=== PATIENT | female | born 1990 | race African-American/Black ===

== ENCOUNTER 2016-08-26 10:20 | Inpatient (IN) | payer OTHER ==
[2016-08-26] MEDS ORDERED: ATIVAN ONE (10:28)
[2016-08-26] MEDS ORDERED: NS 1,000 ML ONE (10:30)
[2016-08-26] MEDS ORDERED: ATIVAN IM ONE (10:32)
[2016-08-26 10:44] LABS: BE 1.7 mmoll (-3.0-3.0); BLOOD TYPE ARTERIAL; DRAW SITE R BRACHIAL; METHB 1.5 % (0.0-1.5); O2(CT) 18.3 mL/dL (15.0-23.0); PO2(98.6) 162 mmHg (60-100); SAMPLE BLOOD; THB 13.5 g/dL (11.5-17.4)
[2016-08-26 10:47] LABS: ALLEN TEST YES; PCO2(98.6) 17 mmHg (35-45); pH(98.6) 7.67 (7.35-7.45)
[2016-08-26] MEDS ORDERED: KEPPRA 1,000 MG in NS 100 ML IV ONE (10:47)
[2016-08-26] MEDS ORDERED: ATIVAN IV ONE (10:47)
[2016-08-26 10:48] LABS: MODALITY CANNULA
[2016-08-26] MEDS ORDERED: NS 1,000 ML IV ONE (10:49)
[2016-08-26] MEDS ORDERED: KEPPRA ONE (10:51)
[2016-08-26] MEDS ORDERED: NS ONE (10:51)
[2016-08-26 10:53] LABS: MANUAL DIFF NEEDED? NO; URINE SOURCE CATH
[2016-08-26 10:55] LABS: BASO% 0.8 % (0.0-0.8); EOS# 0.03 X1000 (0.0-0.7); EOS% 0.6 % (0.0-10.0); HEMATOCRIT 40.5 % (37.0-47.0); IMM GRAN# 0.01 X1000 (0.0-0.04); IMM GRAN% 0.2 % (0.0-0.5); LYMPH# 1.54 X1000 (1.2-3.4); LYMPH% 31.1 % (20.5-51.1); MCH 29.8 PG (27-31); MCHC 34.6 g/dL (33-37); MCV 86.2 FL (81-99); MONO# 0.68 X1000 (0.11-0.59); MONO% 13.7 % (1.7-9.3); MPV 9.7 FL (7.4-10.4); NEUT% 53.6 % (42.2-75.2); PLT 271 X1000 (130-400)
[2016-08-26] MEDS ORDERED: AMIDATE ONE (10:57)
[2016-08-26] MEDS ORDERED: QUELICIN ONE (10:58)
[2016-08-26 11:00] LABS: BILIRUBIN URINE NEGATIVE (NEGATIVE); BLOOD URINE 1+ (NEGATIVE); CLARITY CLEAR (CLEAR); COLOR YELLOW; GLUCOSE URINE NEGATIVE (NEGATIVE); LEUKOCYTES URINE TRACE (NEGATIVE); NITRITE URINE NEGATIVE (NEGATIVE); PH URINE 6.5; PROTEIN URINE TRACE mg/dL (NEGATIVE); SP GRAVITY URINE 1.015; UROBILINOGEN URINE 4+(12 mg/dL)
--- NOTE | 2016-08-26 11:00 | PROVIDER DOCUMENTATION ---
HPI-Neurological Disorder <Aishwarya Ford - Last Filed: 08/26/16 11:02> - General Source: RN notes reviewed Unable to obtain history due to:: altered - History of Present Illness-Neuro Onset/Duration: reports: abrupt, just prior to arrival Timing: reports: improving Context: reports: seizure activity Associated Symptoms: reports: seizures Similar Symptoms Previously?: Yes Recently seen or treated by another doctor?: No - Seizure First time to have a seizure?: No Witnessed seizure?: Yes How many seizure episodes?: 3 Episode details: reports: unknown duration Episode Frequency: occasional episodes Status Epilepticus: Yes Preceding symptoms/context:: missed recent doses of seizure meds Character of Seizure: reports: lost consciousness, generalized shaking all over Post-ictal Symptoms: reports: confusion, lost power/feeling, speech difficulty Seizure related injury: none <Kade Negron - Last Filed: 08/26/16 12:30> - General Chief Complaint: Seizure Stated Complaint: SEIZURE{S} Time Seen by Provider: 08/26/16 10:38 Allergies/Adverse Reactions: Patient Allergies Allergy/AdvReac Type Severity Reaction Status Date / Time acetaminophen Allergy ITCHING Verified 08/09/16 10:28 Benzodiazepines Allergy ITCHING Verified 08/09/16 10:28 guaifenesin [From Robitussin] Allergy ITCHING Verified 08/09/16 10:28 hydromorphone HCl * Allergy RASH Verified 08/09/16 10:28 [From Dilaudid] ibuprofen Allergy RASH Verified 08/09/16 10:28 risperidone [From Risperdal] AdvReac Unknown Verified 08/09/16 10:28 - History of Present Illness-Neuro Nature of Presenting Problem: patient is a 25 y/o F that presents to the ER after having two seizure just [employer]. Patient has history of seizure per family, she was on Triliptal but couldn' t afford it any more and hasn't had it in awhile. (Kade Negron) Review of Systems - Adult - REVIEW OF SYSTEMS - ADULT ROS:: ROS per family Constitutional: denies: chills, fever Eyes: reports: no symptoms reported Ears, Nose, Mouth & Throat: reports: no symptoms reported Cardiovascular: denies: chest pain, palpitations Respiratory: denies: cough, shortness of breath, wheezing Gastrointestinal: reports: nausea, vomiting. denies: abdominal pain, diarrhea Genitourinary: denies: dysuria, frequency, hematuria Musculoskeletal: reports: no symptoms reported Integumentary: reports: no symptoms reported Neurological: reports: seizure. denies: dizziness/vertigo, syncope Psychiatric: reports: no symptoms reported Endocrine: reports: no symptoms reported Hematologic/Lymphatic: reports: no symptoms reported Allergic/Immunologic: reports: no symptoms reported All Other Systems: Reviewed and Negative <Kade Negron - Last Filed: 08/26/16 12:30> Past History - Adult - PAST MEDICAL HISTORY-ADULT Review of Records: reports: Old Records Reviewed, Nursing Assessment Review, Medications Reviewed Respiratory: reports: asthma Obstetrical/Gynecological: reports: ovarian cysts Neurological: reports: Seizures/Epilepsy - PRIOR SURGERIES/PROCEDURES Surgical/Procedure History: reports: none - IMMUNIZATION STATUS Childhood Immunizations: See Nurse Assessment Flu Vaccine: See Nurse Assessment - FAMILY HISTORY Family History: reviewed, not pertinent - SOCIAL HISTORY Smoking: cigarettes, less than 1 pack/day Living Situation: family <Kade Negron - Last Filed: 08/26/16 12:30> Physical Exam- Neurological - Physical Exam-Neuro Exam Limited by: condition Initial Vital Signs Reviewed: Yes General Appearance: moderate distress, other (unresponsive) Eye Exam: bilateral eye: other (pinpoint bilaterally) HENMT: normocephalic/atraumatic, moist mucous membranes, normal ENT inspection Head Injury: no evidence of injury. negative: ecchymosis, lacerations Neck: full range of motion, normal inspection Respiratory: respiratory distress (mild), increased rate. negative: accessory muscle use Cardiovascular: no gallop, no murmur, tachycardia Abdominal Exam: normal bowel sounds, non tender, soft Extremity: normal range of motion, normal inspection, no pedal edema Integumentary: normal color, warm/dry Psych/Mental Status: other (unresponsive) <Kade Negron - Last Filed: 08/26/16 12:30> Progress - EKG 1 Time of EKG reading by physician:: 10:54 EKG Read and Signed by:: Jose M Staley EKG Interpretation (*Must complete 3 of following elements*): Normal Rate: 87 Rhythm: normal sinus rhythm Martin: normal QRS: normal NM Interval: normal ST Wave: normal <Aishwarya Ford - Last Filed: 08/26/16 11:02> - CT/MRI 1 CT Study: Head Impression: Normal CT Results: nap - CONSULTS/PCP/HOSPITALIST Notification #1 *Consult/PCP/Hospitalist*: Time Discussed: :17 Reason/Comments: to ICU at [facility] Consult Disposition: Admit <Kade Negron. - Last Filed: 08/26/16 12:30> - PLAN OF CARE/RESULTS Progress/Plan/Lab Results: on arrival to room, patient began to have active seizure with vomiting. was called to room,in which patient was post-ictal with vomiting on floor. Patient was moved to trauma room 1 in which she became more alert and awake. Vital Signs Pulse Resp BP Pulse Ox 08/26/16 12:13 83 18 103/58 100 08/26/16 12:00 82 18 133/94 100 08/26/16 11:30 85 21 119/89 100 08/26/16 10:50 102 H 22 118/83 100 08/26/16 10:42 92 H 30 H 161/137 100 acetaminophen Allergy (Verified 08/09/16 10:28) ITCHING Benzodiazepines Allergy (Verified 08/09/16 10:28) ITCHING guaifenesin [From Robitussin] Allergy (Verified 08/09/16 10:28) ITCHING hydromorphone HCl * [From Dilaudid] Allergy (Verified 08/09/16 10:28) RASH ibuprofen Allergy (Verified 08/09/16 10:28) RASH risperidone [From Risperdal] Adverse Reaction (Verified 08/09/16 10:28) Unknown Cephalexin [Keflex] 500 mg PO Q6HR #30 capsule 08/09/16 Laboratory 08/26/16 08/26/16 08/26/16 10:45 10:45 10:45 WBC 4.95 RBC 4.70 Hgb 14.0 Hct 40.5 MCV 86.2 MCH 29.8 MCHC 34.6 RDW Std Deviation 12.3 Plt Count 271 MPV 9.7 Immature Gran % (Auto) 0.2 Neut % (Auto) 53.6 Lymph % (Auto) 31.1 [place] % (Auto) 13.7 H Eos % (Auto) 0.6 Baso % (Auto) 0.8 Immature Gran # (Auto) 0.01 Neut # (Auto) 2.65 Lymph # (Auto) 1.54 [place] # (Auto) 0.68 H Eos # (Auto) 0.03 Baso # (Auto) 0.04 Specimen Type Sample Site pH pCO2 pO2 HCO3 Base Excess Oxyhemoglobin ABG O2 Sat (Calculated) ABG O2 Saturation ABG Carboxyhemoglobin ABG Methemoglobin Michael Test A-a O2 Difference Total Hemoglobin Lactate Liter Flow Blood Gas Modality FiO2 % Sodium Potassium Chloride Carbon Dioxide Anion Gap BUN Creatinine Estimated GFR/1.73 m2 BUN/Creatinine Ratio Glucose Calculated Osmolality Calcium Total Bilirubin AST ALT Alkaline Phosphatase Total Protein Albumin Globulin Albumin/Globulin Ratio Urine Source CATH Urine Color YELLOW Urine Clarity CLEAR Urine pH 6.5 Ur Specific [place] 1.015 Urine Protein TRACE A Urine Ketones NEGATIVE Urine Blood 1+ A Urine Nitrite NEGATIVE Urine Bilirubin NEGATIVE Urine Urobilinogen 4+(12 mg/dL) Urine Microscopic RBC 10-20 A Urine WBC TRACE A Urine Microscopic WBC <10 Ur Epithelial Cells <10 Urine Bacteria 1+ Urine Glucose NEGATIVE Urine Opiates Screen NONE DETECTED Ur Oxycodone Screen NONE DETECTED Urine Methadone Screen NONE DETECTED Ur Barbituates Screen NONE DETECTED Ur Tricyclics Screen NONE DETECTED Ur Phencyclidine Scrn NONE DETECTED Ur Amphetamines Screen NONE DETECTED U Methamphetamines Scrn NONE DETECTED Urine MDMA Screen NONE DETECTED U Benzodiazepines Scrn NONE DETECTED Urine Cocaine Screen NONE DETECTED U Cannabinoids Screen PRESUMPTIVE POSITIVE A 08/26/16 08/26/16 10:45 10:36 WBC RBC Hgb Hct MCV MCH MCHC RDW Std Deviation Plt Count MPV Immature Gran % (Auto) Neut % (Auto) Lymph % (Auto) [place] % (Auto) Eos % (Auto) Baso % (Auto) Immature Gran # (Auto) Neut # (Auto) Lymph # (Auto) [place] # (Auto) Eos # (Auto) Baso # (Auto) Specimen Type ARTERIAL Sample Site R BRACHIAL pH 7.67 H* pCO2 17 L* pO2 162 H HCO3 26.2 H Base Excess 1.7 Oxyhemoglobin 94.7 L ABG O2 Sat (Calculated) 18.3 ABG O2 Saturation 99.0 ABG Carboxyhemoglobin 2.80 H ABG Methemoglobin 1.5 Michael Test YES A-a O2 Difference 130.0 Total Hemoglobin 13.5 Lactate 3.20 H Liter Flow 5.0 Blood Gas Modality CANNULA FiO2 % 44.0 Sodium 138 Potassium 3.4 L Chloride 101 Carbon Dioxide 26 Anion Gap 11 BUN 7 L Creatinine 0.9 Estimated GFR/1.73 m2 > 60 BUN/Creatinine Ratio 8 Glucose 57 L Calculated Osmolality 271 Calcium 9.8 Total Bilirubin 0.50 AST 20 ALT 21 Alkaline Phosphatase 82 Total Protein 7.8 Albumin 4.5 Globulin 3.0 Albumin/Globulin Ratio 1.0 Urine Source Urine Color Urine Clarity Urine pH Ur Specific [place] Urine Protein Urine Ketones Urine Blood Urine Nitrite Urine Bilirubin Urine Urobilinogen Urine Microscopic RBC Urine WBC Urine Microscopic WBC Ur Epithelial Cells Urine Bacteria Urine Glucose Urine Opiates Screen Ur Oxycodone Screen Urine Methadone Screen Ur Barbituates Screen Ur Tricyclics Screen Ur Phencyclidine Scrn Ur Amphetamines Screen U Methamphetamines Scrn Urine MDMA Screen U Benzodiazepines Scrn Urine Cocaine Screen U Cannabinoids Screen Orders Category Date Time Status CHEST-PORTABLE [RAD] Stat Exams 08/26/16 10:39 Taken HEAD W/O CONTRAST [CT] Stat Exams 08/26/16 10:39 Draft ABG [RESP] Routine Lab 08/26/16 10:36 Completed BLOOD CULTURE [BLDCUL] Stat Lab 08/26/16 11:40 Ordered CBC WITH DIFF [HEME] Stat Lab 08/26/16 10:45 Completed COMPREHENSIVE METABOLIC PANEL [CHEM] Stat Lab 08/26/16 10:[address] W/POSS RFLX CULT [URINALYSIS] Stat Lab 08/26/16 10:45 Completed URINE CULTURE [RM] Routine Lab 08/26/16 11:12 Ordered [address] DRUG SCREEN [address] Stat Lab 08/26/16 10:45 Completed 0.9% Sodium Chloride Inj [Ns] 1,000 ml Med 08/26/16 10:30 Discontinued .ROUTE As Directed 0.9% Sodium Chloride Inj [Ns] 1,000 ml Med 08/26/16 10:49 Discontinued IV 999 mls/hr Clindamycin Med 08/26/16 11:39 Discontinued 900 mg IV NOW ONE Clindamycin 900 mg/Ns 50 ml Med 08/26/16 12:07 Discontinued .ROUTE As Directed Etomidate [Amidate] Med 08/26/16 10:57 Discontinued 20 mg .ROUTE .STK-MED ONE Levetiracetam 1000 mg/Ns [Keppra 1,000 mg/Ns] 100 ml Med 08/26/16 10:51 Discontinued .ROUTE As Directed Levetiracetam [Keppra] 1,000 mg Med 08/26/16 10:47 Discontinued 0.9% Sodium Chloride Inj [Ns] 100 ml IV NOW Lorazepam [Ativan] Med 08/26/16 10:28 Discontinued 2 mg .ROUTE .STK-MED ONE Lorazepam [Ativan] Med 08/26/16 10:32 Discontinued 2 mg IM NOW ONE Lorazepam [Ativan] Med 08/26/16 10:47 Discontinued 2 mg IV NOW ONE Succinylcholine [Quelicin] Med 08/26/16 10:58 Discontinued 200 mg .ROUTE .STK-MED ONE Transfer/Admit Order [TRANSFER] Routine Transfer 08/26/16 12:22 Ordered (Kade Negron) Departure <Aishwarya Ford - Last Filed: 08/26/16 11:02> - Departure Time of Disposition Order: 12:29 Certified Medical Emergency: Emergent - Critical Care Note Total Time (mins): 40 Critical Care Statement: This patient required my direct personal management to treat or rule out processes, the absence of which, could potentiallly result in sudden, clinically significant life or limb threatening deterioration. <Kade Negron - Last Filed: 08/26/16 12:30> - Departure DIAGNOSIS: Seizure Disposition: ADMITTED INPATIENT 09 Condition: Stable Attestation - Scribe Verification/Attestation Scribe:: Aishwarya Ford Acting as Scribe for:: Jose M Staley Scribe documention review:: This chart was documented by a scribe and accurately reflects the service the provider performed and the decisions made by the provider. <Aishwarya Ford - Last Filed: 08/26/16 11:02> - Scribe Verification/Attestation Scribe:: Kade Negron Acting as Scribe for:: Jose M Staley Scribe documention review:: This chart was documented by a scribe and accurately reflects the service the provider performed and the decisions made by the provider. <Kade Negron - Last Filed: 08/26/16 12:30> Physician Attestation - Physician Attestation I, the provider, attest to the following statement:: Jose M Staley Physician documentation Attestation:: This documentation recorded by the scribe accurately reflects the service I personally performed and the decisions made by me. <Kade Negron - Last Filed: 08/26/16 12:30>
[2016-08-26 11:01] LABS: UR AMPHETAMINES QUAL NONE DETECTED (NONE DETECT); UR BARBITUATES QUAL NONE DETECTED (NONE DETECT); UR BENZODIAZEPIN QUAL NONE DETECTED (NONE DETECT); UR CANNABINOIDS QUAL PRESUMPTIVE POSITIVE (NONE DETECT); UR COCAINE QUAL NONE DETECTED (NONE DETECT); UR MDMA QUAL NONE DETECTED (NONE DETECT); UR METHADONE QUAL NONE DETECTED (NONE DETECT); UR METHAMPHETAMINE QUAL NONE DETECTED (NONE DETECT); UR OPIATES QUAL NONE DETECTED (NONE DETECT); UR OXYCODONE QUAL NONE DETECTED (NONE DETECT); UR PCP QUAL NONE DETECTED (NONE DETECT); UR TCA QUAL NONE DETECTED (NONE DETECT)
[2016-08-26 11:12] LABS: URINE CULTURE PL NEEDED? YES; URINE EPITHELIAL CELLS <10 /HPF (<10); URINE WBC <10 /HPF (<10)
[2016-08-26 11:15] LABS: AGAP 11; ALBUMIN 4.5 g/dL (3.5-5.0); ALKALINE PHOSPHATASE 82 U/L (32-104); BUN 7 mg/dL (8-22); CALCIUM 9.8 mg/dL (8.8-10.2); CHLORIDE 101 mmol/L (98-107); COSMO 271; GOT 20 U/L (10-30); GPT 21 U/L (10-36); POTASSIUM 3.4 mmol/L (3.5-5.1); SODIUM 138 mmol/L (136-145); TCO2 26 mmol/L (25-35); TOTAL PROTEIN 7.8 g/dL (6.3-8.3)
[2016-08-26] MEDS ORDERED: CLINDAMYCIN IV ONE (11:39)
[2016-08-26] MEDS ORDERED: CLINDAMYCIN 900 MG/NS 50 ML ONE (12:07)
--- NOTE | 2016-08-26 12:22 | Diag Imaging Result Document ---
PROCEDURE NAME: HEAD W/O CONTRAST - 08/26/2016 CT HEAD WITHOUT CONTRAST: COMPARISON: None available. FINDINGS: There is no discrete intracranial mass, mass effect, or intracranial hemorrhage. There is no evidence of hydrocephalus. There is no evidence of acute infarct given the limited sensitivity of CT versus MRI. The surrounding soft tissues and bony structures are essentially unremarkable. IMPRESSION: No evidence of acute intracranial pathology.
--- NOTE | 2016-08-26 12:39 | EKG Report ---
Test Performed on : 08/26/2016 10:54:07 AM Test Reason : cp Blood Pressure : / mmHG Vent. Rate : 087 BPM Atrial Rate : 087 BPM P-R Int : 150 ms QRS Dur : 092 ms QT Int : 382 ms P-R-T Axes : 047 041 023 degrees QTc Int : 459 ms Normal sinus rhythm. Normal ECG No previous ECGs available Unconfirmed Result
--- NOTE | 2016-08-26 13:59 | Diag Imaging Result Document ---
PROCEDURE NAME: CHEST-PORTABLE - 08/26/2016 SINGLE FRONTAL RADIOGRAPH OF THE CHEST: COMPARISON: None available. FINDINGS: The lungs are grossly clear. There is no discrete pleural fluid collection or evidence of pneumothorax. The cardiomediastinal silhouette and upper airway are grossly unremarkable. IMPRESSION: No evidence of acute chest pathology.
[2016-08-26] MEDS ORDERED: ZOFRAN IV PRN (14:27)
[2016-08-26] MEDS ORDERED: ROCEPHIN 1 GM/NS 50 ML IV SCH (16:30)
[2016-08-26] MEDS: VIMPAT PO SCH (21:17)
--- NOTE | 2016-08-27 02:40 | HISTORY AND PHYSICAL ---
PRIMARY CARE PHYSICIAN: None. CHIEF COMPLAINT: Had 2 witnessed seizures prior to arriving at [facility] today. HISTORY OF PRESENTING ILLNESS: This is a 25-year-old female who presents to [facility] ER after she had 2 witnessed seizures at [facility] today while she was eating lunch prior to arriving to the emergency room. When she arrived to the emergency room she had another seizure with vomiting. Workup in the ER showed urine drug screen was presumptive positive for cannabinoids. Blood gas showed a pH of 7.67, pCO2 of 17, PO2 162. She was given Ativan 2 mg IM x1 and 2 mg IV x1. She was also given a loading dose of Keppra 1000 mg IV x1, given a liter of normal saline x1, was given clindamycin 900 mg IV x1 in the ER. The patient was admitted then to intensive care unit. The patient states that she was started on Trileptal when she was incarcerated several months ago. States the only thing that works for her is Trileptal and Klonopin together but states that she is unable to afford the Trileptal and that it has been approximately 4 months since she has taken any Trileptal. States that the Keppra gives her blurred vision and that Dilantin just did not work. She currently is alert and awake and answers all my questions appropriately and she is being admitted for further evaluation and treatment. PAST MEDICAL HISTORY: Of asthma and seizures. PAST SURGICAL HISTORY: None. FAMILY HISTORY: Noncontributory. SOCIAL HISTORY: She currently lives with family. Smokes 3-4 cigarettes a day. Denies any alcohol use and denies any illicit drug use even though her urine drug screen is positive for cannabinoids. ALLERGIES: TO ACETAMINOPHEN, BENZODIAZEPINES, ROBITUSSIN, DILAUDID, IBUPROFEN AND RISPERDAL. HOME MEDICATIONS: She listed Keflex 500 mg but states she is not taking that currently so that will be held. LABORATORY DATA: Showed a white blood cell count of 4.95, hemoglobin 14, hematocrit 40.5, platelets 271,000. ABG with a pH of 7.67, pCO2 17, PO2 162 and this is on 5 L via nasal cannula. Sodium of 138, potassium 3.4, chloride 101, CO2 was 26, BUN of 7, creatinine 0.9, glucose 57. Urinalysis was negative for nitrites, trace of white blood cells and 1+ bacteria. Urine drug screen presumptive positive for cannabinoids. Blood culture and urine cultures are pending. CT of the head showed no evidence of acute intracranial pathology. Chest x-ray showed no evidence of an acute chest pathology. REVIEW OF SYSTEMS: She denied any fever, chills, blurred vision, dizziness, chest pain, coughing, shortness of breath. She denied any constipation, diarrhea, or burning or hurting with urination. PHYSICAL EXAMINATION: VITAL SIGNS: On arrival, pulse was 92, respirations 30, blood pressure 161/137, saturating 100% on 5 L via nasal cannula. Currently blood pressure is down to 103/58. GENERAL: This is a 25-year-old female who states she does not want to be here but is willing to accept treatment. HEENT: Normocephalic and atraumatic. Pupils are equal, round, reactive to light. Extraocular movements are intact. Oropharynx and nares are clear. NECK: Supple. LUNGS: Clear to auscultation bilaterally with equal lung expansion and chest wall movement. HEART: With regular rate and rhythm. No murmurs, rubs, or gallops. ABDOMEN: Soft, nontender, nondistended. Bowel sounds are present x4 quadrants. EXTREMITIES: No clubbing, cyanosis, or edema. NEUROLOGICAL: The cranial nerves 2-12 are grossly intact. ASSESSMENT: 1. Seizures. 2. Questionable urinary tract infection. 3. Tobacco abuse. 4. Marijuana use and medical noncompliance. PLAN: She was admitted to the intensive care unit mostly because it was reported she was having periods of apnea in the ER right after she had a witnessed seizure. She has not had any more of that at this time but we will continue to monitor her closely. Neuro checks q.1 hour, vital signs q.4, regular diet. O2 per protocol. We will start her on Vimpat 100 mg p.o. b.i.d. as patient states that the Keppra causes her to have blurred vision and we will consult Neurology who can see her in the a.m. if available and will recheck CBC, CMP, and an ABG in the a.m. Dictated by ARCELIA Maxwell for Mark Anthony Alonzo MD
[2016-08-27] MEDS: VIMPAT PO SCH (09:36)
[2016-08-27 10:58] VITALS: BP 110/70
--- NOTE | 2016-08-27 20:15 | DISCHARGE SUMMARY ---
ADMISSION DATE: 08/26/2016 DISCHARGE DATE: 08/27/2016 DISCHARGE DIAGNOSES: 1. Seizure disorder. 2. Noncompliance. HOSPITAL COURSE: Briefly this is a 25-year-old female, very noncompliant with her seizure medicines for various reasons mostly associated with cost. She had 2 witnessed seizures. I think she works at [employer] or she was eating at [employer] but she had 2 witnessed seizures. She came in. She was given Keppra but she is not very interested in maintaining on that because it prevents her from eating and decreases her appetite. She says she has been stable on Trileptal and Klonopin in the past, and Dilantin did not control her seizures. In any case she was given 1 g of Keppra, 4 mg of Ativan and her seizures have been well-controlled. There was some concern over possible aspiration but I do not think her chest x-rays showed any infiltrates. She had a couple episodes of apnea associated when she was postictal but that also has improved. In any case patient improved. She was adamant to go home, almost left AMA. Fortunately she stuck around long enough so we could at least organize some medications for her which will likely be topiramate based on cost 100 b.i.d. and we will follow as she has been intolerant of Dilantin and Keppra in the past. Discharge condition is stable. Questionable urinary tract infection but her urine culture is negative. Her laboratory data is unremarkable so I think she is okay to go home today on seizure medicines. We will try to arrange followup with Neurology, unable ti at this time. Return for worsening seizures or any worsening shortness of breath, cough or fever. TOTAL TIME SPENT ON DISCHARGE: 32 minutes.
[2016-08-27] MEDS ORDERED: TOPAMAX PO SCH (21:00)
[2016-08-27] MEDS ORDERED: ZONEGRAN PO SCH (21:00)
== END 2016-08-27 10:15 | disposition home or self-care (01) | DRG 101 ==
LOC: P.ED 10:20 → P.ICU 12:28 → ICU 12:28 → UNDOADMIN 12:28 → P.ICU 14:09
PROVIDERS: ADMIT Internal Medicine; ATTEND Internal Medicine
DX: G40.909 Epilepsy, unspecified, not intractable, without status epilepticus (principal); F17.210 Nicotine dependence, cigarettes, uncomplicated; T42.1X6A Underdosing of iminostilbenes, initial encounter; Z91.120 Patient's intentional underdosing of medication regimen due to financial hardship; J45.909 Unspecified asthma, uncomplicated; F12.10 Cannabis abuse, uncomplicated
CPT/HCPCS: 70450; 71010; 80053; 81001; 82805; 82948; 85025; 87040; 87088; 93005; 94660; 96361; 96365; 96366; 96367; 96372; 96375; J0330; J0696; J1953; J2060; J7030; S0077

== ENCOUNTER 2019-06-26 05:18 | Observation (INO) ==
--- NOTE | 2019-06-23 13:55 | EKG Report ---
Test Performed on : 06/23/2019 1:51:01 PM Test Reason : PAT Blood Pressure : / mmHG Vent. Rate : 083 BPM Atrial Rate : 083 BPM P-R Int : 158 ms QRS Dur : 088 ms QT Int : 382 ms P-R-T Axes : 041 037 004 degrees QTc Int : 448 ms Normal sinus rhythm. Normal ECG When compared with ECG of 09-OCT-2018 14:13, No significant change was found Unconfirmed Result
[2019-06-23 14:13] LABS: URINE SOURCE VOIDED
[2019-06-23 14:16] LABS: BASO# 0.04 X1000 (0.0-0.2); BASO% 0.7 % (0.0-0.8); EOS# 0.15 X1000 (0.0-0.7); EOS% 2.8 % (0.0-10.0); HEMATOCRIT 39.2 % (37.0-47.0); HEMOGLOBIN 12.8 g/dL (12.0-16.0); LYMPH# 2.33 X1000 (1.2-3.4); LYMPH% 42.8 % (20.5-51.1); MCH 28.7 PG (27-31); MCHC 32.7 g/dL (33-37); MCV 87.9 FL (81-99); MONO# 0.47 X1000 (0.11-0.59); MONO% 8.6 % (1.7-9.3); MPV 9.6 FL (7.4-10.4); NEUT# 2.45 X1000 (1.4-6.5); NEUT% 45.1 % (42.2-75.2); PLT 368 X1000 (130-400); RBC 4.46 XMIL (4.2-5.4); RDW 13.2 % (11.5-14.5); WBC 5.44 X1000 (4.8-10.8)
--- NOTE | 2019-06-23 14:18 | Diag Imaging Result Doc PS360 ---
EXAM: CHEST-2 VIEWS HISTORY: PAT TECHNIQUE: Two views COMPARISON: 08/03/2017 FINDINGS: The lungs are well expanded. The heart is not enlarged. The vessels are not distended. There are no infiltrates. No pleural effusions. IMPRESSION: No acute abnormality. Electronically signed by Arsen Mata 06/23/2019 2:15 PM
[2019-06-23 14:19] LABS: BILIRUBIN URINE NEGATIVE (NEGATIVE); BLOOD URINE NEGATIVE (NEGATIVE); COLOR YELLOW; GLUCOSE URINE NEGATIVE (NEGATIVE); KETONE URINE TRACE mg/dL (NEGATIVE); LEUKOCYTES URINE NEGATIVE (NEGATIVE); NITRITE URINE NEGATIVE (NEGATIVE); PROTEIN URINE 30 mg/dL (NEGATIVE); SP GRAVITY URINE 1.036; TURBIDITY URINE CLEAR (CLEAR); UR EPITHELIAL CELLS <10 /HPF (<10); URINE BACTERIA 1+ /HPF; URINE RBC <10 /HPF (<10); URINE WBC <10 /HPF (<10); UROBILINOGEN URINE 2 mg/dL (NORMAL)
[2019-06-23 14:39] LABS: AGAP 10; ALB/GLOB RATIO 1.4; ALBUMIN 4.5 g/dL (3.5-5.0); ALKALINE PHOSPHATASE 84 U/L (32-104); BUN 9 mg/dL (8-22); CALCIUM 9.2 mg/dL (8.8-10.2); CHLORIDE 105 mmol/L (98-107); COSMO 287; CREATININE 1.2 mg/dL (0.5-0.9); ESTIMATED GFR > 60; GLUCOSE 117 mg/dL (70-104); GOT 20 U/L (10-30); GPT 21 U/L (10-36); POTASSIUM 3.9 mmol/L (3.5-5.1); SODIUM 144 mmol/L (136-145); TCO2 29 mmol/L (25-35); TOTAL PROTEIN 7.7 g/dL (6.3-8.3)
[2019-06-26] MEDS ORDERED: KEFZOL 1 GM/D5W 1 GM/50 ML IVPB ONE (05:53)
[2019-06-26] MEDS ORDERED: PEPCID ONE (05:53)
[2019-06-26] MEDS ORDERED: LR 1,000 ML ONE (05:53)
[2019-06-26] MEDS ORDERED: REGLAN ONE (05:53)
[2019-06-26] MEDS ORDERED: SENSORCAINE 0.5%-EPI 1:200,000 ONE (06:13)
[2019-06-26] MEDS ORDERED: NUPERCAINAL ONE (06:13)
[2019-06-26] MEDS ORDERED: DIPRIVAN 1% ONE (06:45)
[2019-06-26] MEDS ORDERED: XYLOCAINE-MPF 2% ONE (06:46)
[2019-06-26] MEDS ORDERED: SUFENTA ONE (06:52)
[2019-06-26] MEDS ORDERED: VERSED ONE (06:53)
[2019-06-26] MEDS ORDERED: ZOFRAN ONE (06:57)
[2019-06-26] MEDS: MORPHINE ONE ×3 (08:22→08:38)
[2019-06-26] MEDS ORDERED: MORPHINE PCA ONE (08:39)
[2019-06-26] MEDS: DEMEROL ONE ×2 (08:41→08:49)
[2019-06-26] MEDS: D5 1/2 NS 1,000 ML IV SCH ×2 (09:50→18:37)
[2019-06-26] MEDS ORDERED: NARCAN IV PRN (10:30)
[2019-06-26] MEDS ORDERED: SODIUM CHLORIDE 0.9% INJ PRN (10:30)
[2019-06-26] MEDS ORDERED: PHENERGAN IV PRN (10:30)
[2019-06-26] MEDS ORDERED: XYLOCAINE 5% OINT TOP PRN (13:55)
--- NOTE | 2019-06-26 14:47 | OPERATIVE NOTE ---
PROCEDURE DATE: 06/26/2019 PREOPERATIVE DIAGNOSIS: Prolapsing external and internal hemorrhoids. POSTOPERATIVE DIAGNOSIS: Prolapsing external and internal hemorrhoids. PROCEDURE: Stapled hemorrhoidectomy. DESCRIPTION OF PROCEDURE: The patient was brought to the operating room. After satisfactory induction of IV and endotracheal anesthesia, she was placed in the prone jackknife position. Her buttocks were taped and spread. The perineum was prepped and draped in the appropriate manner. Anal dilation was subsequently performed. The instrument was placed inside. A pursestring of 2-0 Prolene was placed 5 cm inside the anus. This was checked and felt to be satisfactory. The anvil was placed proximal to the pursestring. The pursestring was subsequently tied down. The system was hooked up, wound down, and held for 1 minute. Vaginal encroachment was not detected on vaginal exam. It was held for 1 minute, fired, held for another minute, and then removed. A satisfactory donut was obtained. Inspection of the staple line revealed no evidence of bleeding. [avitene*]butt plug with Nupercaine ointment was subsequently placed as well as sterile dressing. The patient was subsequently turned back onto her back, awakened, and extubated in the operating room, and transferred to recovery. ESTIMATED BLOOD LOSS: About 10 mL. cc: Alphonso Crouch MD [id number]
[2019-06-26] MEDS: BENADRYL PO PRN ×2 (15:24→19:50)
[2019-06-26] MEDS: NORCO-10 PO PRN ×2 (15:25→19:50)
[2019-06-26] MEDS: FLOMAX PO SCH (15:25)
[2019-06-26] MEDS: BUSPAR PO SCH (15:27)
[2019-06-26] MEDS: MORPHINE PCA IV PRN (20:11)
[2019-06-26] MEDS: MINIPRESS PO SCH (21:57)
[2019-06-26] MEDS: PERIDEX MT SCH (21:57)
[2019-06-26] MEDS: TRILAFON PO SCH (22:02)
[2019-06-26] MEDS: DESYREL PO PRN (22:02)
[2019-06-27] MEDS: BENADRYL PO PRN ×2 (00:46→09:54)
[2019-06-27] MEDS: NORCO-10 PO PRN ×4 (00:46→21:57)
[2019-06-27] MEDS: BUSPAR PO SCH ×4 (00:46→21:57)
[2019-06-27] MEDS: MORPHINE PCA IV PRN ×3 (02:23→22:16)
[2019-06-27] MEDS: D5 1/2 NS 1,000 ML IV SCH ×3 (04:28→15:14)
[2019-06-27] MEDS: VENTOLIN HFA INH SCH (07:43)
[2019-06-27] MEDS: CYMBALTA PO SCH (09:41)
[2019-06-27] MEDS: GLUCOPHAGE PO SCH (09:42)
[2019-06-27] MEDS: FLOMAX PO SCH (09:42)
[2019-06-27] MEDS: PERIDEX MT SCH ×2 (09:42→21:56)
[2019-06-27] MEDS ORDERED: TUMS PO PRN (20:46)
[2019-06-27] MEDS: TRILAFON PO SCH (21:56)
[2019-06-27] MEDS: MINIPRESS PO SCH (21:56)
[2019-06-27] MEDS: DESYREL PO PRN (21:57)
[2019-06-27] MEDS: BENADRYL IV PRN (21:59)
[2019-06-28] MEDS: BENADRYL IV PRN (04:23)
[2019-06-28] MEDS: NORCO-10 PO PRN (04:23)
[2019-06-28] MEDS: D5 1/2 NS 1,000 ML IV SCH (04:23)
[2019-06-28 06:18] LABS: BASO# 0.02 X1000 (0.0-0.2); BASO% 0.3 % (0.0-0.8); EOS% 1.5 % (0.0-10.0); HEMATOCRIT 36.1 % (37.0-47.0); HEMOGLOBIN 11.5 g/dL (12.0-16.0); LYMPH# 2.28 X1000 (1.2-3.4); LYMPH% 34.1 % (20.5-51.1); MCH 28.9 PG (27-31); MCHC 31.9 g/dL (33-37); MCV 90.7 FL (81-99); MONO# 0.65 X1000 (0.11-0.59); MONO% 9.7 % (1.7-9.3); MPV 9.8 FL (7.4-10.4); NEUT# 3.63 X1000 (1.4-6.5); NEUT% 54.4 % (42.2-75.2); PLT 277 X1000 (130-400); RBC 3.98 XMIL (4.2-5.4); RDW 13.1 % (11.5-14.5); WBC 6.68 X1000 (4.8-10.8)
[2019-06-28 06:43] LABS: AGAP 11; BUN 9 mg/dL (8-22); CHLORIDE 99 mmol/L (98-107); COSMO 279; CREATININE 1.1 mg/dL (0.5-0.9); ESTIMATED GFR > 60; GLUCOSE 122 mg/dL (70-104); POTASSIUM 3.8 mmol/L (3.5-5.1); SODIUM 140 mmol/L (136-145); TCO2 30 mmol/L (25-35)
[2019-06-28] MEDS: VENTOLIN HFA INH SCH (07:48)
[2019-06-28] MEDS: BUSPAR PO SCH (08:51)
[2019-06-28] MEDS: FLOMAX PO SCH (08:51)
[2019-06-28] MEDS: GLUCOPHAGE PO SCH (08:51)
[2019-06-28] MEDS: CYMBALTA PO SCH (08:51)
[2019-06-28] MEDS: PERIDEX MT SCH (08:52)
[2019-06-28 09:08] VITALS: BP 143/77
== END 2019-06-28 10:35 | disposition home or self-care (01) ==
LOC: OPS 05:18 → PAT 05:18 → 4N 09:55 → INTOOBSV 09:55
PROVIDERS: ADMIT Surgery; ATTEND Surgery